=== PATIENT | female | born 1955 | race Caucasian/White ===

== ENCOUNTER 2024-06-17 14:20 | Inpatient (IN) | payer OTHER, SELFPAY ==
[2024-06-17 08:46] VITALS: BMI 29.9
[2024-06-17 08:57] VITALS: BP 174/84
[2024-06-17] MEDS: NSS 237 ML IV (09:45)
--- NOTE | 2024-06-17 09:49 | PTCARENOTE ---
Dr Lira is at pt bedside using [place] global technical writer to obtain procedural consent. Pt's daughter Julieta at pt bedside.
[2024-06-17] MEDS: LOW STRENGTH ASPIRIN 324 MG PO (09:51)
[2024-06-17 10:41] LABS: ACT-LR - POC 337 Seconds (116-155)
[2024-06-17 11:30] LABS: ACT-LR - POC 284 Seconds (116-155)
[2024-06-17 11:54] LABS: B.E. - POC 13.8 mmol/L; Glucose - POC 302 mg/dl (70-99); HCO3 - POC 37 mmol/L (21-28); Hematocrit - POC 29 % PCV (37-47); Hemodilution- POC Yes; Hemoglobin Calculated - POC 9.8; Ionized Calcium - POC 1.19 mmol/L (1.15-1.33); Lactate - POC 4.29 mmol/L (0.36-0.75); PCO2 - POC 41 mmHg (35-48); PO2 - POC 481 mmHg (83-108); POC Comment ECMO PATIENT SOURCE; Potassium - POC 2.1 mmol/L (3.5-5.1); Sodium - POC 150 mmol/L (136-145); Specimen Type - POC Arterial; pH - POC 7.56 (7.35-7.45)
[2024-06-17 12:01] LABS: B.E. - POC -1.2 mmol/L; Glucose - POC 259 mg/dl (70-99); HCO3 - POC 21 mmol/L (21-28); Hematocrit - POC 29 % PCV (37-47); Hemodilution- POC Yes; Hemoglobin Calculated - POC 9.8; Ionized Calcium - POC 1.19 mmol/L (1.15-1.33); O2 Saturation %Calculated-POC 94.2 % (94-98); PCO2 - POC 25 mmHg (35-48); PO2 - POC 62 mmHg (83-108); POC Comment ECMO; Potassium - POC 2.7 mmol/L (3.5-5.1); Sodium - POC 144 mmol/L (136-145); Specimen Type - POC Arterial; pH - POC 7.52 (7.35-7.45)
[2024-06-17 12:21] LABS: % Basophils 0.2 % (0-2); % Eosinophils 0.3 % (0-6); % Lymphocytes 29.2 % (20.5-51.1); % Monocytes 4.1 % (1.7-9.3); % Neutrophils 65.2 % (42.2-75.2); Absolute Immature Granulocytes 0.1 10^3/uL (0-0.05); Absolute Lymphocytes 2.5 10^3/uL (1.2-3.4); Absolute Monocytes 0.4 10^3/uL (0.1-0.6); Absolute Neutrophils 5.7 10^3/uL (1.4-6.5); Hematocrit 32.2 % (37.0-47.0); Hemoglobin 11.3 g/dL (12.0-16.0); Mean Corp Hgb Conc. 35.1 g/dL (33.0-37.0); Mean Corpuscular Hgb 28.7 pg (27.0-31.0); Mean Corpuscular Volume 81.7 fL (81.0-99.0); Mean Platelet Volume 12.8 fL (7.4-10.4); Nucleated Red Blood Cells % 0 %; Platelet Count 239 10^3/uL (130-400); Red Blood Cell Count 3.94 10^6/uL (4.20-5.40); Red Cell Dist. Width 13.2 % (11.5-14.5); White Blood Cell Count 8.7 10^3/uL (4.8-10.8)
--- NOTE | 2024-06-17 12:23 | W.PN.CT.SURG ---
Addendum entered and electronically signed by Dimas Bruno MD 06/18/24 06:11:
Procedure:
1. Emergent Access and Cannulation for Veno-Arterial Extracorporeal Circulation
2. Arterial - 17Fr cannula in R RESEARCH PROGRAM INTERN
3. Venous - 25Fr cannula in R CFV
4. Placement of a distal perfusion limb into the R SFA (6Fr) using micropuncter and Ultrasound
5. Re-positioning of ecmo cannulas under fluoroscopy
6. Management of ecmo and leading ACLS code during PCI
Original Note:
CT Surgery Operative Note
-
Pre-op Diagnosis: Cardiogenic Shock, Acute Coronary Syndrome with Dissection of Left Main
Post-op Diagnosis: Same
Procedure:
1. Emergent Access and Cannulation for Veno-Arterial Extracorporeal Circulation
2. Arterial - 17Fr cannula in R RESEARCH PROGRAM INTERN
3. Venous - 25Fr cannula in R CFV
Primary Surgeon: Dimas Bruno MD
Anesthesia: Raghav Lazcano MD
Assisting Surgeons: Mello Lira MD and Yamil Castro MD
Complications / Blood Loss: 150
Findings: I was called to the lab nurse for emergent hemodynamic support as the patient was actively undergoing ACLS for cardiopulmonary collapse with a dissection flap in the LAD propagating to the LM. The patient had several V-fib arrests with
attempted defibrillations. Access was obtained with 6Fr sheaths to the R Common Femoral Vessels. A stiff wire was inserted first into the venous system and visualized in the IVC, 10,000 units of heparin was given, the venous track was dilated with a
16Fr dilator and then the cannula was inserted and positioned at the IVC/RA junction. The same was performed with the arterial sheath, with dilation using a 10Fr dilator. The arterial cannula was prepped with a pigtail catheter for future DPC. The
arterial cannula was inserted. Both cannulas were secured. The ECMO circuit lines were brought up into the field and then clamped and divided accordingly. The lines were then wet-mated to the cannulas, the lines were de-aired accordingly and ECMO
was commenced without resistance. We continued to resume ACLS protocol after and I left Dr. Lira and Dr. Castro resume high PCI.
Dimas Bruno MD
Cardiac Surgeon
[facility]
[2024-06-17 12:30] LABS: B.E. - POC 6.3 mmol/L; Glucose - POC 254 mg/dl (70-99); HCO3 - POC 26 mmol/L (21-28); Hematocrit - POC 32 % PCV (37-47); Hemodilution- POC Yes; Hemoglobin Calculated - POC 10.9; Ionized Calcium - POC 1.18 mmol/L (1.15-1.33); PCO2 - POC 23 mmHg (35-48); PO2 - POC 68 mmHg (83-108); Potassium - POC 3.2 mmol/L (3.5-5.1); Sodium - POC 148 mmol/L (136-145); Specimen Type - POC Arterial; pH - POC 7.66 (7.35-7.45)
[2024-06-17 12:32] LABS: ALT (SGPT) 485 U/L (0-35); AST (SGOT) 464 U/L (14-36); Albumin 2.4 g/dl (3.5-5.0); Alkaline Phosphatase 64 U/L (38-126); Blood Urea Nitrogen 16 mg/dl (7-17); Calcium 7.8 mg/dl (8.4-10.2); Carbon Dioxide 23 mmol/L (22-30); Chloride 106 mmol/L (98-107); Estimated Creatinine Clearance 76 ml/min; Glucose 227 mg/dl (70-99); Potassium 2.7 mmol/L (3.5-5.1); Sodium 141 mmol/L (135-145); Total Bilirubin 1.1 mg/dl (0.2-1.3); Total Protein 4.6 g/dl (6.3-8.2); eGFR > 60.00
[2024-06-17 12:32] LABS: ACT-LR - POC 236 Seconds (116-155)
--- NOTE | 2024-06-17 12:44 | W.PN.ANESINT ---
Anesthesia Intubation Note
- Intubation Note
Intubation Note:
Diagnosis: Hypoxia, Dysrrhythmia
Blade: Glidescope 4
Tube Size: 8.0 Hi-Lo
Depth: 22
Side Taped: Right
Drugs Used: Propofol 60mg. Succinylcholice 120mg
Grade View: 1
EtCO2 Present: Yes, CO2 detector used
Atraumatic: Yes
Attempts: 1
Insertion Start and Stop Time: 11:00 - 11:05
SaO2 Pre: 84%
SaO2 Post: 98 %
Glidescope Used: Yes
Other Airway Adjustments:
Pre-Oxygenated: Yes
Portable Chest X-Ray: No
RSI: Yes
Suctioned: Yes
Bilateral Breath Sounds Confirmed: Yes
Vent Settings:
Settings perAttending Physician
Called to Trip Motor Operator 3 for hypoxia, Dysrrhythmia, during Cardiac Trip Motor Operator coronary intervention, possible LAD dissection.
[2024-06-17 12:48] LABS: B.E. - POC -0.5 mmol/L; Glucose - POC 279 mg/dl (70-99); HCO3 - POC 19 mmol/L (21-28); Hematocrit - POC 36 % PCV (37-47); Hemodilution- POC Yes; Hemoglobin Calculated - POC 12.2; Ionized Calcium - POC 1.11 mmol/L (1.15-1.33); O2 Saturation %Calculated-POC 98.7 % (94-98); PCO2 - POC 20 mmHg (35-48); PO2 - POC 96 mmHg (83-108); POC Comment ECMO PATIENT SAMPLE; Potassium - POC 4.3 mmol/L (3.5-5.1); Sodium - POC 143 mmol/L (136-145); Specimen Type - POC Arterial
[2024-06-17 12:50] LABS: Troponin I 0.121 ng/ml
[2024-06-17 12:55] LABS: ACT-LR - POC 331 Seconds (116-155)
[2024-06-17 13:10] LABS: ACT-LR - POC > 397 Seconds (116-155)
[2024-06-17 13:22] LABS: B.E. - POC 1.6 mmol/L; Glucose - POC 265 mg/dl (70-99); HCO3 - POC 24 mmol/L (21-28); Hematocrit - POC 34 % PCV (37-47); Hemodilution- POC Yes; Hemoglobin Calculated - POC 11.5; Ionized Calcium - POC 1.18 mmol/L (1.15-1.33); PCO2 - POC 29 mmHg (35-48); PO2 - POC 597 mmHg (83-108); POC Comment ECMO CIRCUIT; Potassium - POC 4.9 mmol/L (3.5-5.1); Sodium - POC 144 mmol/L (136-145); Specimen Type - POC Arterial; pH - POC 7.53 (7.35-7.45)
[2024-06-17 14:23] LABS: ACT-LR - POC > 397 Seconds (116-155)
[2024-06-17 14:54] VITALS: BP 34/23
[2024-06-17 15:00] VITALS: BP 75/54
[2024-06-17 15:13] LABS: ACT-LR - POC 245 Seconds (116-155)
--- NOTE | 2024-06-17 15:14 | PTCARENOTE ---
received patient from poultry hatchery laborer sedated and paralyzed on vent. SB HR in 30s. on ECMO with lang interpreter at bedside. 100% on vent. OGT inserted per orders, to give brilinta. mohr draining blood tinged urine. pulses by doppler. limbs cool. temp 93F.
maggie irving applied. labs drawn by perfusion. cxr done. R radial and L fem a lines present and transduced. PIVx2. sheaths present in pancho groins. bloody drainage noted. hematoma on L groin. poultry hatchery laborer RN at bedside to hold pressure and re dress. Levo,
amio, dobut, and prop infusing. Dr. paz and Dr Bruno at bedside. daughter updated. awaiting flight transfer to [place].
[2024-06-17] MEDS: KCL 270 MEQ IV (15:18)
[2024-06-17] MEDS: BRILINTA 180 MG TUBE (15:23)
[2024-06-17 15:25] VITALS: BP 108/78
[2024-06-17 15:52] VITALS: PULSE 30
[2024-06-17] MEDS: ALBUMIN 5% 250 IV (16:08)
[2024-06-17] MEDS: FLEXBUMIN 100 IV (16:10)
[2024-06-17] MEDS: DIPRIVAN 100 IV (16:11)
[2024-06-17] MEDS: LEVOPHED 250 IV (16:13)
[2024-06-17 16:21] LABS: ACT-LR - POC 285 Seconds (116-155)
[2024-06-17 16:22] LABS: B.E. - POC -2.9 mmol/L; Glucose - POC 275 mg/dl (70-99); HCO3 - POC 19 mmol/L (21-28); Hematocrit - POC 31 % PCV (37-47); Hemodilution- POC Yes; Hemoglobin Calculated - POC 10.5; Ionized Calcium - POC 1.14 mmol/L (1.15-1.33); Lactate - POC 3.23 mmol/L (0.36-0.75); O2 Saturation %Calculated-POC 99.8 % (94-98); PCO2 - POC 24 mmHg (35-48); PO2 - POC 186 mmHg (83-108); POC Comment ECMO PAT SAMPLE; Sodium - POC 147 mmol/L (136-145); Specimen Type - POC Arterial
[2024-06-18 06:34] LABS: B.E. - POC -1.5 mmol/L; Glucose - POC 274 mg/dl (70-99); HCO3 - POC 24 mmol/L (21-28); Hematocrit - POC 32 % PCV (37-47); Hemodilution- POC Yes; Hemoglobin Calculated - POC 10.9; PCO2 - POC 45 mmHg (35-48); PO2 - POC 558 mmHg (83-108); POC Comment ECMO PAT SAMPLE; Potassium - POC 3.6 mmol/L (3.5-5.1); Sodium - POC 148 mmol/L (136-145); Specimen Type - POC Arterial; pH - POC 7.34 (7.35-7.45)
[2024-06-18 06:45] LABS: B.E. - POC -2.5 mmol/L; Glucose - POC 242 mg/dl (70-99); HCO3 - POC 21 mmol/L (21-28); Hematocrit - POC 36 % PCV (37-47); Hemodilution- POC Yes; Hemoglobin Calculated - POC 12.2; Ionized Calcium - POC 1.51 mmol/L (1.15-1.33); PCO2 - POC 31 mmHg (35-48); PO2 - POC 421 mmHg (83-108); POC Comment ECMO PAT SAMPLE; Potassium - POC 4.6 mmol/L (3.5-5.1); Sodium - POC 145 mmol/L (136-145); Specimen Type - POC Arterial; pH - POC 7.44 (7.35-7.45)
--- NOTE | 2024-06-18 20:09 | ITS.CL.PN ---
Merch[employer]ise [facility] - Procedure Note
Procedure
Procedure Note:
CARDIAC CATHETERIZATION REPORT
Date of Procedure: 06/17/2024
Referring: Dr. Rohit Perkins MD
Indication: worsening typical angina despite maximally tolerated anti-anginal therapy, positive cardiac stress test
PROCEDURE(S)
1. left heart catheterization
2. coronary angiography
3. iFR of LAD
4. iFR of diagonal
5. iFR of OM1
6. code blue
7. ECMO placement and SFA perfusion canula placement with CT surgery (Dr. Dimas Bruno)
8. PCI with stent for acute SC to diagonal
9. PCI with stent for acute SC to LM into LAD
10. IVUS LAD and LM
ACCESS:
1. 6F right radial artery (left for hemodynamic monitoring)
2. 17F right common femoral artery (ECMO canula sutured in place)
3. 25F right common femoral vein (ECMO canula sutured in place)
4. 7F left common femoral artery (closed with Perclose x1 and Angioseal x1)
5. 8F left common femoral vein (left for access)
CATHETERS
1. 6F JR4
2. 6F JL3.5
3. 6F EBU3.5 guide catheter
4. 7F EBU3.75 guide catheter
MODERATE SEDATION: 30 minutes of moderate sedation was utilized. An independent medical parasitologist was present to assist with and help manage the patient's level of consciousness and physiologic status.
ULTRASOUND GUIDED VASCULAR ACCESS (right radial artery): Ultrasound was utilized for vascular access. The vessel was visualized under ultrasound and noted to be patent. An image of the vessel was stored permanently in the patient's medical record.
Under direct ultrasound guidance, vascular access was obtained using a modified Seldinger technique and a 6 Andorran sheath was placed.
ULTRASOUND GUIDED VASCULAR ACCESS (right common femoral artery): Ultrasound was utilized for vascular access. The vessel was visualized under ultrasound and noted to be patent. An image of the vessel was stored permanently in the patient's medical
record. Under direct ultrasound guidance, vascular access was obtained using a modified Seldinger technique and a 6 Andorran sheath was placed.
ULTRASOUND GUIDED VASCULAR ACCESS (right femoral vein): Ultrasound was utilized for vascular access. The vessel was visualized under ultrasound and noted to be patent. An image of the vessel was stored permanently in the patient's medical record.
Under direct ultrasound guidance, vascular access was obtained using a modified Seldinger technique and a 6 Andorran sheath was placed.
ULTRASOUND GUIDED VASCULAR ACCESS (left common femoral artery): Ultrasound was utilized for vascular access. The vessel was visualized under ultrasound and noted to be patent. An image of the vessel was stored permanently in the patient's medical
record. Under direct ultrasound guidance, vascular access was obtained using a modified Seldinger technique and a 7 Andorran sheath was placed.
ULTRASOUND GUIDED VASCULAR ACCESS (left femoral vein): Ultrasound was utilized for vascular access. The vessel was visualized under ultrasound and noted to be patent. An image of the vessel was stored permanently in the patient's medical record.
Under direct ultrasound guidance, vascular access was obtained using a modified Seldinger technique and a 8 Andorran sheath was placed.
HEMODYNAMIC DATA
LV 150/9 (EDP 17) mmHg
AO 154/94 (mean 114) mmHg
CORONARY ANGIOGRAPHY
Dominance: right
LM: large, normal
LAD: large vessel giving rise to a single large diagonal branch. The ostial diagonal branch has a hazy, focal 50% stenosis that was further assessed by iFR. The LAD just distal to the diagonal takeoff also has a hazy, focal 50% stenosis that was
further assessed by iFR. The vessel otherwise has no significant coronary artery disease.
LCx: moderate caliber vessel giving rise to a single moderate caliber OM branch. There is a focal 60% stenosis in the proximal aspect of the OM that was further assessed by iFR.
RCA: large vessel giving rise to a large RPDA and large RPL system with multiple branches. There are trivial luminal irregularities only.
iFR of LAD
Heparin was administered to achieve ACT>250. An Omni wire was flushed and zeroed outside the body and then advanced to the left main. The wire introducer was removed and the catheter flushed with saline, after which pressure of the wire and guide
were normalized. The wire was advanced to the LAD and iFR recorded at 0.97. On return to the left main, iFR appropriately normalized to 1.0, confirming lack of wire drift.
iFR of diagonal
The wire was re-advanced to the diagonal and iFR recorded at 0.96. On return to the left main, iFR appropriately normalized to 1.0, confirming lack of wire drift.
iFR of OM
The wire was re-advanced to the OM and iFR recorded at 1.0. On return to the left main, iFR remained at 1.0, confirming lack of wire drift. The wire was the removed and completion angiography performed. This demonstrated a spiral dissection
extending from the LM to the LAD/diagonal bifurcation with TIMI0 flow in the distal LAD.
Code-blue, ECMO cannulation
The patient quickly developed ST elevations on the monitor and MAP dropped precipitously. Anesthesia and CT surgery were called emergently to the room given concern that the patient would suffer cardiac arrest and require ACLS and ECMO cannulation.
Rewiring of the LAD was attempted with a Runthrough wire, however, it would not pass distal to the LAD-diagonal bifurcation, suggesting that it was in false lumen. To minimize further pressurization of the dissection flap, injections were minimized,
but a gentle puff demonstrated that there was now complete occlusion of flow past the left main. The patient had quickly become hypotensive with MAP 40. Given her rapidly deteriorating condition, further attempts to rewire the vessel were abandoned
and ACLS was initiated with high quality CPR. The patient had multiple runs of VT/VF requiring defibrillation. Amio and lido boluses were given and drips initiated. Once CT surgery arrived the decision was made to place the patient on ECMO.
Intubation was performed by anesthesia. Right common femoral artery and right common femoral vein access were obtained with ultrasound guidance and 6F sheaths placed. The patient was cannulated for ECMO from the right groin with 17F arterial inflow
and 25F venous outflow cannulas. Bolus heparin was given. At this point the patient had a perfusing pressure and CPR was stopped. She continued to be minimally pulsatile and have runs of VT/VF requiring further defibrillation. Norepinephrine was
started to support MAP and fluids were given. In preparation for attempted rescue PCI, 7F left common femoral artery and 8F left common femoral vein accesses were obtained.
Rescue PCI of LAD-diagonal bifurcation back to left main
A 7F EBU3.75 guide catheter was advanced from the left groin. With care taken to ensure true lumen wire position, a Runthough wire was placed in the distal LAD, followed by a BMW wire in the diagonal. There was now TIMI3 flow in all distal branches
and the patient remained stable on ECMO without further VT/VF. It appeared the dissection extended from the proximal left main distally to the proximal diagonal. The circumflex did not appear to be involved. Plan was made to stent the diagonal and
the LAD bifurcation back to the left main ostium. 2.75x34 mm Sasabe Musselshell CHANTELLE was selected and deployed in the diagonal with slight protrusion into the LAD. Crush was performed with a 2.5 mm balloon in the LAD. Next, a 2.75x26 mm Eddie Musselshell CHANTELLE
was delivered and deployed in the mid-LAD across the diagonal ostium. After confirming flow in the diagonal, the jailed diagonal wire removed and placed in the LCx. The existing LAD stent was then overlapped proximally with a 3.5x38 mm Eddie Musselshell
CHANTELLE extended to the LM ostium. After confirming flow in the LCx, the jailed LCx wire removed and advanced into the diagonal through stent struts. Post-dilation was then performed beginning with the LAD-diagonal bifurcation with simultaneous kissing
ballon inflation using 2.75x12 mm NC balloons. The LAD back to left main ostium was then post dilated with a 3.75 mm NC taken to 12 neil in the LAD and to 18 neil in the LM. IVUS was performed in the LAD demonstrating appropriate sizing in the LAD
distal to the diagonal with no evidence of dissection at or beyond the distal stent edge. There was mild under-sizing of the proximal LAD and LM, which were both 4.25 mm vessels. The proximal stent edge had fully covered the aorto-ostium with no
protrusion. Further post-dilation was performed with a 4.0 mm NC balloon taken to 20 neil though the LAD and left main with flaring of the aorto-ostium. Final angiographic result was excellent with TIMI3 flow in all branches and no evidence of
residual uncovered dissection. The wire and guide were removed. The ECMO cannulas were secured in place with sutures. A 6F right SFA distal perfusion canula was placed. Once in the CICU, there was continued oozing from the left femoral artery access
site which was no longer needed and was thus removed with a Perclose suture and Angioseal with excellent hemostasis achieved. Family was updated extensively. The patient was transferred to [facility] for further care.
RADIATION: dose 990 mGy; DAP 71 Gy*cm2; fluoroscopy time 38 min
CONCLUSIONS
1. baseline hemodynamics with mildly elevated LV filling pressure and no aortic stenosis on hemodynamic pullback
2. coronary artery disease as described with moderate stenoses in the mid-LAD, diagonal, and OM1 vessels, all proven to be iFR negative
3. at conclusion of iFR procedure, there was noted to be left main spiral dissection extending distally to the LAD and diagonal, with progression to complete left main acute vessel closure, cardiac arrest, and hemodynamic collapse
4. ACLS/CPR and emergent ECMO cannulation with eventual hindu of durable sinus rhythm with excellent pulsatility
5. rescue PCI with mini-crush of the LAD-diagonal bifurcation (2.75x34 mm Sasabe Musselshell CHANTELLE in diagonal and 2.75x26 mm Eddie Musselshell CHANTELLE in LAD) overlapped with additional 3.5x38 mm Eddie Musselshell CHANTELLE back to the ostial LM, with kissing balloon
inflation in the LAD-diagonal with 2.75 mm NC balloons and post-dilation in the proximal LM-LAD with a 4.0 mm NC balloon to high pressure, IVUS-optimized
6. distal perfusion canula placement
RECOMMENDATIONS
1. further management of cardiogenic shock and ECMO per [facility] shock team
2. DAPT for at least 6 months
3. aggressive secondary prevention of coronary artery disease
Copy to: Dr. Rohit Perkins MD (pump stitcher); Dr. Priscilla Doyle MD (PCP)
Signed: Srini Lira MD, PhD
== END 2024-06-17 18:51 | disposition short-term general hospital (02) | DRG 3 ==
LOC: CVICU 14:20
PROVIDERS: ADMITTING PHYSICIAN Student in an Organized Health Care Education/Training Program; FAMILY PHYSICIAN Internal Medicine; OTHER PHYSICIAN Thoracic Surgery (Cardiothoracic Vascular Surgery)
PROC: 5A1522G Extracorporeal Oxygenation, Membrane, Peripheral Veno-arterial (ICD-10-PCS; 2024-06-17)
PROC: 5A1935Z Respiratory Ventilation, Less than 24 Consecutive Hours (ICD-10-PCS; 2024-06-17)
PROC: 0BH17EZ Insertion of Endotracheal Airway into Trachea, Via Natural or Artificial Opening (ICD-10-PCS; 2024-06-17)
PROC: 30233N1 Transfusion of Nonautologous Red Blood Cells into Peripheral Vein, Percutaneous Approach (ICD-10-PCS; 2024-06-17)
DX: I25.42 Coronary artery dissection (principal); I49.01 Ventricular fibrillation; R57.0 Cardiogenic shock; I24.9 Acute ischemic heart disease, unspecified; R09.02 Hypoxemia
CPT/HCPCS: 93308; 33947; 33952; 71045; 80053; 84484; 85025; 86850; 86900; 86901; 86920; 93005; P9016